=== PATIENT | male | born 1970 | race Caucasian/White ===

== ENCOUNTER 2019-06-01 13:59 | Outpatient (REF) | payer BC, SELFPAY ==
--- NOTE | 2019-06-01 13:30 | SKI_PTH ---
PATIENT: Daniel Ribeiro LOC: [facility] U#:[id number] AGE/SX: 48/M ROOM: RE06/01/[address]: Gab Hernández : 1970 BED: DIS: 06/01/2019 SPEC #: [id number] RECD: 06/04/19 12:42 STATUS: JANNETH COLON #: [id number] JESUS: 06/01/19 13:[address]: Gab Hernández DEPT: Surgical Specimen RECD BY: Carmen Meza Tissues: 1 - SKIN BIOPSY(SHAVE/PUNCH) Procedures: SKIN LEVEL 4 Comments: [id number]
== END 2019-06-01 14:19 ==
LOC: NCHCN 13:59
PROVIDERS: PCP Specialist/Technologist Athletic Trainer; Visit Provider Specialist/Technologist Athletic Trainer
DX: D22.5 Melanocytic nevi of trunk (principal)
CPT/HCPCS: 88305

== ENCOUNTER 2020-05-14 09:00 | Outpatient (REF) | payer BC, SELFPAY ==
[2020-05-14 20:46] LABS: ALT 34 U/L (16-63); AST 15 U/L (15-37); Alkaline Phosphatase 106 U/L (46-116); Anion Gap 11.1 mmol/L (3-11); BUN 15 mg/dL (7-18); Bilirubin, Total 0.4 mg/dL (0.2-1.0); CO2 25.9 mmol/L (21.0-32.0); CREATININE 0.93 mg/dL (0.70-1.30); Calcium 8.6 mg/dL (8.5-10.1); Calculated LDL 121 mg/dL (<100); Chloride 105 mmol/L (98-107); Cholesterol 176 mg/dL (<200); Glucose 100 mg/dL (74-106); HDL Cholesterol 34 mg/dL (40-60); Potassium 4.3 mmol/L (3.5-5.1); Sodium 142 mmol/L (136-145); TSH 0.92 uIU/mL (0.36-3.74); Total Protein 6.9 g/dL (6.4-8.2); Triglyceride 105 mg/dL (<150)
[2020-05-19 13:54] LABS: Testosterone, Total 253 ng/dL (240-950)
== END 2020-05-14 09:20 ==
LOC: NCHCN 09:00
PROVIDERS: PCP Specialist/Technologist Athletic Trainer; Visit Provider Nurse Practitioner Family
DX: Z00.00 Encounter for general adult medical examination without abnormal findings (principal); F41.1 Generalized anxiety disorder; R68.82 Decreased libido
CPT/HCPCS: 80053; 80061; 84402; 84403; 84443

== ENCOUNTER → 2021-10-23 00:55 | Outpatient (CLI) | payer BC, SELFPAY ==
--- NOTE | 2021-10-23 11:40 | DI.MRI_ITS ---
Exam(s) MR BRAIN WO EXAM: MR BRAIN WO CLINICAL HISTORY: NEW ONSET HEADACHE WITH VISION CHANGES,R51.9 TECHNIQUE: Multiplanar multisequence MRI of the brain was performed. COMPARISON: No exams were available for comparison FINDINGS: VENTRICLES AND EXTRA AXIAL SPACES: Normal in size and morphology for the patient's age. MIDLINE SHIFT: None. CEREBRAL PARENCHYMA: No focus of restricted diffusion to suggest acute infarct. No space-occupying le sasha identified. HEMORRHAGE: None. BRAINSTEM/CEREBELLUM: Normal. VISUALIZED PARANASAL SINUSES/MASTOIDS:Minimal mucosal thickening sphenoid sinuses and floor of the le ft maxillary sinus. [place]: Normal flow void. PITUITARY GLAND: Unremarkable. OTHER FINDINGS: None. IMPRESSION: Unremarkable MRI of the brain. Minimal sinus disease. DATA REPOSITORY:
== END ==
PROVIDERS: PCP Nurse Practitioner Family; Visit Provider Nurse Practitioner Family
DX: R51.9 Headache, unspecified (principal); H53.8 Other visual disturbances
CPT/HCPCS: 70551

== ENCOUNTER 2021-11-08 12:19 | Emergency (ER) | payer SELFPAY ==
[2021-11-08 12:25] VITALS: BP 154/83; PULSE 91; RESP 16; TEMP 36.2; O2SAT 95
--- NOTE | 2021-11-08 12:49 | ED.GENADUL_ITS ---
Discharge Plan Disposition Patient Disposition: HOME Condition: Stable Discharge Details Clinical Impression: Chronic facial pain, Headache, Sinus disease Primary Care Provider: Renu Crawley ED Provider: Randa Vanegas Home Meds and New Rx's Prescriptions: New levofloxacin 750 mg tablet 750 mg PO DAILY 7 Days Qty: 7 0RF prednisone 20 mg tablet See Rx Instructions .ROUTE .COMPLEX Qty: 18 0RF Rx Instructions: Take 3 tabs daily for 3 days, then 2 tabs daily for 3 days, then 1 tab daily for 3 days. Continued clonazepam 1 mg tablet 1 tab PO BID PRN Label Comments: TAKE ONE TABLET BY MOUTH TWICE A DAY NEEDED albuterol sulfate 90 mcg/actuation HFA aerosol inhaler 2 inh INHALATION PRN Label Comments: INHALE ONE TO TWO PUFFS BY MOUTH EVERY 4 TO 6 HOURS NEEDED Discharge Instructions Instructions: Sinusitis (ED), General Headache (ED) Additional Instructions: Drink plenty of fluids and get plenty of rest. Alternate tylenol and motrin as needed and directed for pain. Prescriptions for the antibiotic Levaquin and the steroid prednisone have been sent electronically to your pharmacy. Start taking these today and take them as directed until finished. You have been placed on care management list to arrange for a follow-up appointment with the Ear Nose and Throat doctor for reevaluation. You were tested for COVID today. Please quarantine until your COVID test result is available and if confirmed to be negative. Return immediately to the emergency department if you develop any worsening or new concerning symptoms. Referrals: Jesús Dhaliwal MD [ [facility] STAFF PHYSICIAN] - Discharge Data Discharge Date/Time-TO BE ENTERED AT DEPARTURE: 11/08/21 14:00 Discharge Physician: Randa Vanegas Medical Decision Making 50-year-old male with a history of anxiety and GERD who presents for headache, most specifically facial pain and green nasal discharge for the past few weeks. Recently referred for an outpatient MRI brain per his PCP for these symptoms which noted minimal sinus disease otherwise is unremarkable. Blood pressure mildly hypertensive, he is otherwise afebrile and appears nontoxic and comfortable. He has no tenderness to palpation of his sinuses and the remainder of his ENT exam is within normal limits. He has no focal deficits on exam. As he had a recent negative MRI brain, do not see an indication for repeat imaging at this time. As his pain is mostly overlying his sinuses and associated with green nasal discharge, would most likely suspect sinusitis at this time. His history and presentation does not appear consistent with CVA, including subarachnoid hemorrhage, or meningitis. Also consider allergies. He had no relief with a course of Augmentin. Will cover with Levaquin for possible treatment failure and add a course of steroids. Patient placed on care manage ment list to arrange for a follow-up appointment with ENT for reevaluation. Discussed with patient that this treatment regimen may not resolve his symptoms and follow-up is strongly encouraged. Usual and customary return precautions given prior to discharge. Medical Records Medical records narrative: 10/23/21 Brain MRI MR BRAIN WO CLINICAL HISTORY:? NEW ONSET HEADACHE WITH VISION CHANGES,R51.9 TECHNIQUE:? Multiplanar multisequence MRI of the brain was performed. COMPARISON:? No exams were available for comparison FINDINGS: VENTRICLES AND EXTRA AXIAL SPACES: Normal in size and morphology for the patient's age. MIDLINE SHIFT: None. CEREBRAL PARENCHYMA: No focus of restricted diffusion to suggest acute infarct. No space-occupying lesion identified. HEMORRHAGE: None. BRAINSTEM/CEREBELLUM: Normal. VISUALIZED PARANASAL SINUSES/MASTOIDS:Minimal mucosal thickening sphenoid sinuses and floor of the left maxillary sinus.? [place]: Normal flow void. PIT[place]ARY GL[place]: Unremarkable. OTHER FINDINGS: None. IMPRESSION: Unremarkable MRI of the brain. Minimal sinus disease. HPI General Mode of arrival: ambulatory . Date/Time Provider Initiated Documentation: 11/08/21 12:48 . Limitations to Documentation: no limitations . Information obtained by: patient . HPI Narrative: Patient is a 50-year-old male with a history of anxiety, GERD who presents for facial pain for the past 3 weeks. Patient states he first noticed pain while looking down while playing cards at home a few weeks ago. Patient states he followed up with his primary care doctor at [facility] who referred him for an MRI of his brain which she had on 10/23/21 which noted a normal brain but with minimal sinus disease. He states he was treated with a course of Augmentin and Flonase with no change in his symptoms. Patient states he has had clear and green nasal discharge. He denies any fever, sneezing, sore throat, cough, chest pain, shortness of breath, headache felt the top of his head, neck pain, unilateral numbness or weakness. Related Data Home Medications Medication Instructions Recorded Confirmed albuterol sulfate 90 mcg/actuation 2 inh inhalation PRN 11/08/21 aerosol inhaler clonazepam 1 mg tablet 1 tab PO BID PRN 11/08/21 11/08/21 levofloxacin 750 mg tablet 750 mg PO DAILY 7 days #7 tabs 11/08/21 prednisone 20 mg tablet See Rx Instructions .Route 11/08/21 .COMPLEX #18 tabs Previous Rx's Medication Instructions Recorded levofloxacin 750 mg tablet 750 mg PO DAILY 7 days #7 tabs 11/08/21 prednisone 20 mg tablet See Rx Instructions .Route 11/08/21 .COMPLEX #18 tabs Allergies Allergy/AdvReac Type Severity Reaction Status Date / Time Sulfa (Sulfonamide Allergy Severe Anaphylaxsi Unverified 11/08/21 12:28 Antibiotics) s ranitidine Allergy Intermediate Hives Unverified 11/08/21 12:28 lactose AdvReac Unverified 11/08/21 12:28 General Stated Complaint: Headache ASA: 3 Review of Systems All systems reviewed & are unremarkable except as noted in HPI and below Constitutional Constitutional: Reports as per HPI, Denies chills and Denies fever(s) Eyes Eyes: Denies blurry vision ENT Ears, Nose, Mouth, and Throat: Denies dizziness, Reports facial pain, Reports nasal congestion, Reports nasal discharge, Reports sinus pain, Reports sinus pressure, Denies sore throat and Denies throat swelling Cardiovascular Cardiovascular: Denies chest pain and Denies dyspnea Respiratory Respiratory: Denies cough and Denies dyspnea Gastrointestinal Gastrointestinal: Denies abdominal pain, Denies diarrhea and Denies vomiting Genitourinary Genitourinary: Denies hematuria and Denies dysuria Musculoskeletal Musculoskeletal: Denies back pain and Denies numbness Integumentary/Breasts Skin/Breast: Denies lesions and Denies rash Neurologic Neurologic: Denies dizziness, Denies localized weakness and Denies numbness Allergic/Immunologic Allergic/Immunologic: Denies throat swelling PFSH All Active Problems (Updated 11/08/21 @ 13:24 by Randa Vanegas DO) Chronic facial pain (Acute) Headache (Acute) Sinus disease (Acute) Social History Smoking/Tobacco Use Status: Former Tobacco Use Smoking risk assessment performed?: Yes Alcohol Intake: never Drug use: Never Substance use type: does not use Do you feel safe in your relationship?: Yes Exam Const General: cooperative, healthy appearing and no acute distress Orientation: alert, awake and oriented x3 HENMT Head: normal to inspection Ears: hearing grossly normal bilaterally, external ears normal and TM's normal bilaterally General nose exam: external nose normal Face and sinus: no sinus tenderness Mouth: oral mucosae normal Throat: posterior oropharynx normal Eyes General: appearance normal, both eyes and all related structures Neck Neck: normal visual inspection, no lymphadenopathy, no meningeal signs, trachea midline and supple Resp Effort & Inspection: normal respiratory effort and able to speak in complete sentences Auscultation: clear to auscultation bilaterally Cardio Rate: regular rate Rhythm: regular rhythm Skin General skin exam: no rashes or lesions noted Neuro General: patient alert, patient awake and patient oriented x3 Motor: muscle tone normal throughout Extrem General: normal to inspection and full ROM Psych Appearance: grossly normal Affect: normal affect Course Vital Signs Vital signs: Vital Signs Temperature 97.2 F L 11/08/21 12:25 Pulse 91 H 11/08/21 12:25 Respiratory Rate 16 11/08/21 12:25 Blood Pressure 154/83 H 11/08/21 12:25 Pulse Oximetry 95 11/08/21 12:25 Temperature 97.2 F L 11/08/21 12:25 Temperature Source Temporal Artery Scan 11/08/21 12:25 Pulse 91 H 11/08/21 12:25 Respiratory Rate 16 11/08/21 12:25 Respiratory Effort 11/08/21 12:25 Blood Pressure 154/83 H 11/08/21 12:25 Blood Pressure Position Sitting 11/08/21 12:25 Pulse Oximetry 95 11/08/21 12:25 Oxygen Delivery Method Room Air 11/08/21 12:25 Oxygen Flow Rate 0 11/08/21 12:25 Pain Level 6 11/08/21 12:25
--- NOTE | 2021-11-08 14:08 | NUR.NOTE ---
Referral faxed to [facility] ENT for possible sinusitis disease within the next 2 weeks. Araseli Samuel
[2021-11-10 11:56] LABS: COVID-19 RT-PCR UVMMC Result Negative (Negative)
--- NOTE | 2021-11-10 18:21 | NUR.NOTE ---
patient notified of negative covid test results.
== END 2021-11-08 14:00 | disposition home or self-care (01) ==
PROVIDERS: Emergency Provider Physician Assistant; PCP Nurse Practitioner Family
DX: R51.9 Headache, unspecified (principal); J34.89 Other specified disorders of nose and nasal sinuses
CPT/HCPCS: 99283; U0003

== ENCOUNTER 2022-09-30 18:41 | Outpatient (REF) | payer OTHER, SELFPAY ==
[2022-09-30 19:04] LABS: Anion Gap 9.7 mmol/L (3-11); BUN 15 mg/dL (7-18); CO2 26.3 mmol/L (21.0-32.0); Calcium 9.2 mg/dL (8.5-10.1); Calculated LDL 118 mg/dL (<100); Chloride 106 mmol/L (98-107); Cholesterol 192 mg/dL (<200); Estimated GFR 91.12 (mL/min/1.73m2); Glucose 105 mg/dL (74-106); HDL Cholesterol 39 mg/dL (40-60); Potassium 4.2 mmol/L (3.5-5.1); Sodium 142 mmol/L (136-145); Triglyceride 175 mg/dL (<150)
[2022-09-30 19:24] LABS: Hemoglobin A1C 5.8 % (<5.7)
== END 2022-09-30 18:42 | disposition home or self-care (01) ==
LOC: NCHCN 18:41
PROVIDERS: PCP Nurse Practitioner Family; Visit Provider Nurse Practitioner Family
DX: Z00.00 Encounter for general adult medical examination without abnormal findings (principal); Z13.1 Encounter for screening for diabetes mellitus; Z83.3 Family history of diabetes mellitus; Z13.228 Encounter for screening for other metabolic disorders
CPT/HCPCS: 80048; 80061; 83036

== ENCOUNTER → 2023-06-24 19:33 | Outpatient (CLI) | payer OTHER, SELFPAY ==
--- NOTE | 2023-06-24 19:49 | DI.RAD_ITS ---
Exam(s) XR CHEST 2V PA LATERAL EXAM: XR CHEST 2V PA LATERAL CLINICAL HISTORY: COUGH TECHNIQUE: 2D digital imaging was performed. COMPARISON: CR CHEST 2 VIEWS PA,LAT from 09/28/2013 FINDINGS: HEART: Normal size. Aorta: Not dilated. PULMONARY VASCULATURE: Normal. LUNGS: Clear. PLEURAL SPACE: No pleural effusion or pneumothorax. BONE:Unremarkable for age. Soft tissues: Unremarkable. IMPRESSION: No acute abnormality. DATA REPOSITORY: RADIATION DOSE DELIVERED:
--- NOTE | 2023-06-24 20:09 | DI.VRAD_ITS ---
PROCEDURE INFORMATION: Exam: XR Chest Exam date and time: 06/24/2023 7:42 PM Age: 52 years old Clinical indication: Cough TECHNIQUE: Imaging protocol: Radiologic exam of the chest. Views: 2 views. COMPARISON: No relevant prior studies available. FINDINGS: Lungs: Unremarkable. No consolidation. Pleural spaces: Unremarkable. No pleural effusion. No pneumothorax. Heart/Mediastinum: Unremarkable. No cardiomegaly. Bones/joints: Unremarkable. IMPRESSION: No acute findings. Dictated and Authenticated by: Harris Song MD. Ordering:HOPE Nguyen MD
== END ==
PROVIDERS: PCP Nurse Practitioner Family; Visit Provider Physician Assistant Medical
DX: R05.9 Cough, unspecified (principal)
CPT/HCPCS: 71046

== ENCOUNTER 2023-10-24 18:02 | Outpatient (REF) | payer OTHER, SELFPAY ==
[2023-10-24 19:26] LABS: ALT 47 U/L (16-63); AST 20 U/L (15-37); Albumin 4.3 g/dL (3.4-5.0); Alkaline Phosphatase 103 U/L (46-116); Anion Gap 10.3 mmol/L (3-11); BUN 14 mg/dL (7-18); Bilirubin, Total 0.3 mg/dL (0.2-1.0); CO2 24.7 mmol/L (21.0-32.0); Calculated LDL 140 mg/dL (<100); Chloride 105 mmol/L (98-107); Cholesterol 201 mg/dL (<200); Estimated GFR 90.56 (mL/min/1.73m2); Glucose 94 mg/dL (74-106); HDL Cholesterol 46 mg/dL (40-60); Potassium 4.2 mmol/L (3.5-5.1); Sodium 140 mmol/L (136-145); Total Protein 7.5 g/dL (6.4-8.2); Triglyceride 77 mg/dL (<150)
[2023-10-24 19:57] LABS: Hemoglobin A1C 5.8 % (<5.7)
[2023-10-26 08:44] LABS: Hepatitis C Ab w Rflx HCV PCR Negative (Negative)
[2023-10-26 09:56] LABS: HIV-1/2 Ag & Ab Screen Negative (Negative)
== END 2023-10-24 18:03 | disposition home or self-care (01) ==
LOC: NCHCN 18:02
PROVIDERS: PCP Nurse Practitioner Family; Visit Provider Nurse Practitioner Family
DX: Z13.6 Encounter for screening for cardiovascular disorders (principal); Z00.00 Encounter for general adult medical examination without abnormal findings
CPT/HCPCS: 80053; 80061; 86803; 87389; 83036

== ENCOUNTER 2023-11-03 11:02 | Day surgery (SDC) | payer OTHER, SELFPAY ==
--- NOTE | 2023-11-02 22:18 | PDOC.DSDIS_ITS ---
Date of service: 11/03/23 Time of Service: 13:33 Discharge Plan Disposition Patient Disposition: Home Condition: Good Discharge Details Reason For Visit: Screening colonoscopy Attending Provider: Tristen Fairbanks Primary Care Provider: Renu Crawley Home Meds and New Rx's Prescriptions: Continued magnesium oxide 400 mg magnesium capsule 400 mg PO DAILY riboflavin (vitamin B2) 100 mg tablet 100 mg PO BID sumatriptan succinate 100 mg tablet See Rx Instructions PO .COMPLEX Qty: 10 3RF Rx Instructions: take 1 tab at onset of headache; if no relief, may repeat 1 tab after at least 2 hrs; max = 2 tabs/24 hrs PO prochlorperazine maleate 5 mg tablet See Rx Instructions PO TID PRN (Reason: headaches and nausea) Qty: 30 3RF Rx Instructions: 5-10 mg orally three times a day PRN; clotrimazole-betamethasone 1-0.05 % cream 1 applic topical BID PRN Qvar RediHaler 40 mcg/actuation HFA aerosol breath activated 2 inh inhalation BID ProAir RespiClick 90 mcg/actuation aerosol powdr breath activated 2 inh inhalation Q4H PRN clonazepam 1 mg tablet 1 tab PO BID PRN Patient Comments: TAKE ONE TABLET BY MOUTH TWICE A DAY NEEDED Discontinued bisacodyl [Dulcolax (bisacodyl)] 5 mg tablet,delayed release (DR/EC) 5 mg PO ONCE Qty: 4 0RF Rx Instructions: Take per colonoscopy instructions provided by ordering providers office polyethylene glycol 3350 17 gram/dose powder 17 g PO ONCE Qty: 238 0RF Rx Instructions: Take per colonoscopy instructions provided by ordering providers office Discharge Instructions Instructions: Colorectal Polyps (GEN) Additional Instructions: Daniel, we were able to complete your colonoscopy today without any difficulty. Your prep was fine, and I could see everything quite nicely. He did have 1 polyp that was medium in size. It was located about 35 cm up from your anus. I did remove that today without any issues, and I will send it off for testing. Once the nature of that polyp is determined, that information will be used to guide the timing of your next colonoscopy. As soon as my office test was results, we will be in touch. If you have any questions in the meantime, please do not hesitate to call or ask at any point. 1. If tolerated, consume a soft, low fiber diet for 1-2 days. 2[address] Do not drive, drink alcohol, operate machinery, make critical decisions, or do activities that require coordination or balance for 24 hours. 3. Because air was put into your colon during the procedure, expelling air from your rectum (passing gas or farting) is normal. 4. You may not have a bowel movement for 1-3 days because of the colonoscopy pr ep. This is normal. 5. Go directly to the emergency room if you notice any of the following: Develop chills (warm to touch), or if you have a thermometer and your temperature is above 101 Difficulty breathing or difficultly swallowing Persistent vomiting Severe abdominal pain, other than gas cramps Severe chest pain Black, tarry stools Any bleeding ? exceeding one tablespoon 6. Call your physician if the site where your intravenous was started becomes red, swollen, painful, and warm to touch. 7. Your physician has reviewed your pre-procedure medications. Please continue to take those medications as previously ordered. You will be given specific information/education regarding any changes to your medications before leaving. Activity:: Activity as Tolerated Diet:: As Tolerated Discharge Orders Discharge Orders: Discharge Order (Routine); Ordered 11/02/23 Ordered By: Tristen Fairbanks DS: Diagnosis Discharge Diagnosis (1) Encounter for screening colonoscopy: Status: Acute Asessment and Plan: Follow-up on polypectomy results
--- NOTE | 2023-11-02 22:20 | W.COLOREPORT ---
Date of service: 11/03/23 Time of Service: 13:35 Colonoscopy Report Date of procedure: 11/03/23 Pre-op diagnosis general: Screening colonoscopy Post-op diagnosis procedure note: other (Colon polyp) Procedure: Colonoscopy with polypectomy Surgeon: Tristen Fairbanks Anesthesia Type: General:No Airway Estimated blood loss (mL): 5 Pathology: other (0.75 pedunculated polyp at 35 cm from the anus) Complications: None Disposition: same day Indications: Daniel is a 52-year-old male who needs his neck screening colonoscopy Prep: Miralax/Dulcolax Procedure Start Time: 13:08 Procedure End Time: 13:22 Retraction Time: 8 Findings: 0.75 pedunculated polyp at 35 cm from the anus Procedure Description: After the induction of monitored anesthetic care, and with the patient in left lateral decubitus position, I began by performing an external anorectal exam.? Perineum and skin were normal, as was the anal verge.? There was no evidence of external hemorrhoids.? Next, I performed a digital rectal exam.? I did not appreciate any abnormal findings.? Next, I advanced a colonoscope into the rectal vault.? I performed retroflexion.? This was normal.? Using insufflation, I then advanced the colonoscope beyond the rectal folds and into the sigmoid colon before advancing towards the cecum.? The scope was noted to be in the cecum by identification of the ileocecal valve and appendiceal orifice.? I then began withdrawing the colonoscope using repeated irrigation as necessary for full evaluation of the colonic mucosa. Around 35 cm from the anal verge I identified a 0.75 cm polyp. ?It appeared pedunculated in character. ?I was able to remove this with a energize snare polypectomy. ?I examined the site, and there was minimal bleeding. ?Once this was completed, I continued to withdraw the scope and examine the remainder of the colonic mucosa.?Once the scope was withdrawn to the level of the rectum, great care was taken to examine portions of the rectal folds.? Finally, the scope was withdrawn and the patient was brought to the same-day surgery recovery unit as the anesthetic wore off. ?The findings and instructions were shared with the patient prior to discharge. [place] Bowel Prep [place] Bowel Prep Right Colon: 2 Left Colon: 3 Transverse Colon: 3 Total Score: 8
[2023-11-03 11:31] VITALS: BP 147/93; PULSE 105; RESP 16; TEMP 36.4; O2SAT 95
[2023-11-03] MEDS: Lactated Ringers 1,000 ML 80 ML IV (11:36)
--- NOTE | 2023-11-03 12:33 | W.ANESPRE ---
General Info Date of Service Date Performed: 11/03/23 Height: 5 ft 11 in Weight: 140.5 kg Body Mass Index (BMI): 43.2 Surgical Procedure: Operation Date: 11/03/23 13:05 Proposed Procedure Side Surgeon medardo Fairbanks MD Meds Allergies and Home Medications Allergies Allergy/AdvReac Type Severity Reaction Status Date / Time Sulfa (Sulfonamide Allergy Severe Anaphylaxsi Verified 11/03/23 11:14 Antibiotics) s ranitidine Allergy Intermediate Hives Verified 11/03/23 11:14 sulfasalazine Allergy Mild shortness Verified 11/03/23 11:14 of breath griseofulvin Allergy . Verified 11/03/23 11:14 lactose AdvReac Unknown . Verified 11/03/23 11:14 omeprazole AdvReac Headache/na Verified 11/03/23 11:14 usea Home Medication Medication Instructions Recorded clonazepam 1 mg tablet 1 tab PO BID PRN 11/08/21 clotrimazole-betamethasone 1 1 applic topical BID PRN 03/16/22 %-0.05 % topical cream prochlorperazine maleate 5 mg See Rx Instructions PO TID PRN 03/23/22 tablet headaches and nausea #30 tabs magnesium oxide 400 mg PO DAILY 05/04/22 riboflavin (vitamin B2) 100 mg 100 mg PO BID 05/04/22 tablet sumatriptan succinate 100 mg tablet See Rx Instructions PO .COMPLEX 05/04/22 #10 tabs albuterol sulfate 90 mcg/actuation 2 inh inhalation Q4H PRN 09/05/23 breath activated powder inhaler (ProAir RespiClick) beclomethasone dipropionate 40 2 inh inhalation BID 09/05/23 mcg/actuation HFA breath activated aerosol (Qvar RediHaler) Current Visit Medications: Current Medications Generic Name Dose Route Start Last Admin Trade Name Freq PRN Reason Stop Dose Admin Ringer's Solution 1,000 mls @ 80 mls/hr 11/03/23 06:00 11/03/23 11:36 IV 12/02/23 23:59 80 mls/hr INFUSION NILAY Administration IV Miscellaneous Supplies 1 each 11/03/23 06:00 Iv Access IV 12/02/23 23:59 DIRECTED NILAY Ondansetron HCl 4 mg 11/02/23 22:21 Ondansetron 4 Mg/2 Ml Vial IVP 12/02/23 22:20 Q4H PRN PRN Nausea / Vomiting Sodium Chloride 0 ml 11/03/23 06:00 Normal Saline Flush 10 Ml Syr IV 12/02/23 23:59 PRN PRN Sodium Chloride 0 ml 11/03/23 06:00 Normal Saline 10 Ml Vial IJ 12/02/23 23:59 DIRECTED PRN Sterile Water 0 ml 11/03/23 06:00 Water,Injection,Sterile 10 Ml Vial IJ 12/02/23 23:59 DIRECTED PRN PFSH Active Problems Active Problems: Problem Status Onset Code Encounter for screening colonoscopy Z12.11 Migraine headache without aura G43.009 Daily headache R51.9 Facial pressure R44.8 Headache around the eyes R51.9 Medical History Medical History Asthma Decreased libido without sexual dysfunction Family history of diabetes mellitus in first degree relative Generalized anxiety disorder Genital herpes GERD (gastroesophageal reflux disease) Lateral epicondylitis Low back pain Palpitations Panic disorder Reduced libido Right shoulder pain Seasonal allergic rhinitis Tinea cruris Tongue lesion Wart of hand Tobacco Smoking/Tobacco Use Status: Former Tobacco Use Alcohol Alcohol Intake: current Alcohol intake frequency: holidays/special occasions only Substance Use Substance use: Never Substance use type: does not use Vital Signs and Lab Results Vital Signs Most Recent Vital Signs in EMR: Most Recent Vital Signs Temp Pulse Resp BP Pulse Ox 36.4 C L 105 H 16 147/93 H 95 11/03/23 11:31 11/03/23 11:31 11/03/23 11:31 11/03/23 11:31 11/03/23 11:31 Lab Results Blood Type / Crossmatch: No Data to Display Complete Blood Count: No Data to Display Complete Metabolic Panel: Sodium 140 mmol/L (136-145) 10/24/23 16:20 Potassium 4.2 mmol/L (3.5-5.1) 10/24/23 16:20 Chloride 105 mmol/L (98-107) 10/24/23 16:20 Carbon Dioxide 24.7 mmol/L (21.0-32.0) 10/24/23 16:20 BUN 14 mg/dL (7-18) 10/24/23 16:20 Creatinine 1.0 mg/dL (0.70-1.30) 10/24/23 16:20 Est GFR (CKD-EPI 2020) 90.56 (mL/min/1.73m2) 10/24/23 16:20 Calcium 9.0 mg/dL (8.5-10.1) 10/24/23 16:20 Albumin 4.3 g/dL (3.4-5.0) 10/24/23 16:20 Glucose 94 mg/dL (74-106) 10/24/23 16:20 Hemoglobin A1c 5.8 % (<5.7) H 10/24/23 16:20 Liver Function Panel: Alanine Aminotransferase (ALT/SGPT) 47 U/L (16-63) 10/24/23 16:20 Aspartate Amino Transf (AST/SGOT) 20 U/L (15-37) 10/24/23 16:20 Coagulation Panel: No Data to Display Cardiac Panel: No Data to Display Arterial Blood Gas: No Data to Display Venous Blood Gas: No Data to Display Pancreas Panel: No Data to Display Thyroid Panel: No Data to Display Infectious Disease: HIV (1&2) Ag and Ab, 4th Generation Negative (Negative) 10/24/23 16:20 Hepatitis C Antibody Negative (Negative) 10/24/23 16:20 Blood Cultures: No Data to Display Toxicology Panel: No Data to Display Anesthesia Assessment and Plan Anesthesia History Personal History: PONV Family History: No Family History of Anesthesia Complications Exercise Tolerance Exercise Tolerance: Metabolic Equivalents>4 Pertinent Negatives Pertinent Negatives: No Symptoms of GERD, No Major Cardiovascular Symptoms or Complaints and No Major Pulmonary Symptoms or Complaints Cardiac & Pulmonary Exam Cardiac Exam: Normal S1/S2 Heart Sounds Pulmonary Exam: Clear Bilateral Breath Sounds Implantable Cardiac Device Does patient have a Pacemaker or an ICD?: No Airway Exam Known Difficult Airway: No Mallampati Class: 2 Mouth Opening: Normal (> 3cm) Thyromental Distance: Greater than 3 cm Neck Range of Motion: Full ROM Neck Circumference: Normal Teeth Condition: Removable Dentures/Plates Upper and Removable Dentures/Plates Lower ASA Classification ASA Score: ASA 3 Emergency Case?: No NPO Status NPO Status: NPO Clears >2 hours, Solids >8 hours Anesthesia Plan Resuscitation Status: Full Code Anesthesia Technique: General Anesthesia Airway Planned: Natural Airway Monitors Used: Standard Monitors
[2023-11-03 12:35] VITALS: BMI 43.2
--- NOTE | 2023-11-03 13:20 | BOWEL_PTH ---
PATIENT: Daniel Ribeiro LOC: [facility] U#:[id number] AGE/SX: 52/M ROOM: RE11/03/[address]: Tristen Fairbanks MD : 1970 BED: DIS: 11/03/2023 SPEC #: [id number] RECD: 11/03/23 18:22 STATUS: JANNETH RE #: [id number] JESUS: 11/03/23 13:[address]: Tristen Fairbanks DEPT: Surgical Specimen RECD BY: Carmen Meza ENTERED: 11/03/23 18:23 SP TYPE: Bowel OTHR DR: Renu Crawley Tissues: 1 - BIOPSY BOWEL Procedures: GROSS AND MICRO LEVEL 4 Comments: [id number]
[2023-11-03 13:28] VITALS: BP 128/78; PULSE 97; RESP 16; TEMP 36.5; O2SAT 92
--- NOTE | 2023-11-03 13:50 | W.ANESPOSTOP ---
Postoperative Evaluation Date, Time and Location Date Performed: 11/03/23 Time Performed: 13:42 Patient Location: Day Surgery Unit Vital Signs Most Recent Imported Vital Signs: Most Recent Vital Signs Temp Pulse Resp BP Pulse Ox 36.5 C 97 H 16 128/78 92 11/03/23 13:28 11/03/23 13:28 11/03/23 13:28 11/03/23 13:28 11/03/23 13:28 Pain Score Most Recent Pain Score: Most Recent Pain Score Pain Level 0 11/03/23 13:28 Assessment Mental Status: Awake (Alert & Oriented to Patient Baseline) Airway and Respiratory Function: Patent airway with normal (patient baseline) respiratory exam Cardiovascular Function: Hemodynamically Stable Hydration Status: Adequately Hydrated Nausea & Vomiting: No Nausea or Vomiting Pain: Pt. Denies Any Pain Peripheral Nerve Block: Patient did not receive a nerve block
[2023-11-03 13:57] VITALS: BP 120/85; PULSE 89; RESP 16; TEMP 36.4; O2SAT 94
== END 2023-11-03 14:20 | disposition home or self-care (01) ==
PROVIDERS: PCP Nurse Practitioner Family; Visit Provider Surgery
PROC: 0DJD8ZZ Inspection of Lower Intestinal Tract, Via Natural or Artificial Opening Endoscopic (ICD-10-PCS; CPT 45378; principal; 2023-11-03 13:00)
DX: Z12.11 Encounter for screening for malignant neoplasm of colon (principal); D12.5 Benign neoplasm of sigmoid colon
CPT/HCPCS: 45385; 88305; J2704

== ENCOUNTER 2025-01-17 18:21 | Outpatient (REF) | payer BC, SELFPAY ==
[2025-01-18 09:55] LABS: Hemoglobin A1C 5.6 % (<5.7)
[2025-01-18 09:57] LABS: ALT 51 U/L (16-63); AST 17 U/L (15-37); Albumin 4.3 g/dL (3.4-5.0); Alkaline Phosphatase 107 U/L (46-116); Anion Gap 10.6 mmol/L (3-11); BUN 15 mg/dL (7-18); Bilirubin, Total 0.5 mg/dL (0.2-1.0); CO2 24.4 mmol/L (21.0-32.0); Calcium 9.4 mg/dL (8.5-10.1); Chloride 105 mmol/L (98-107); Estimated GFR 89.44 (mL/min/1.73m2); Glucose 98 mg/dL (74-106); Potassium 4.1 mmol/L (3.5-5.1); Sodium 140 mmol/L (136-145); TSH (W/Ref FT4) 1.02 uIU/mL (0.36-3.74); Total Protein 7.3 g/dL (6.4-8.2)
== END 2025-01-17 18:22 | disposition home or self-care (01) ==
LOC: NCHCN 18:21
PROVIDERS: Visit Provider Nurse Practitioner Family
DX: Z00.00 Encounter for general adult medical examination without abnormal findings (principal)
CPT/HCPCS: 80053; 83036; 84443

== ENCOUNTER 2025-02-14 00:14 | Outpatient (CLI) | payer BC, SELFPAY ==
--- NOTE | 2025-02-14 | ETT_ITS ---
APPROVED REPORT Exam: Exercise Treadmill Patient Location: Out-Patient Room/Bed: Stress Nurse: ASUNCION Collins Ordering Provider:MATT PETIT, Contact Number: [phone] BMI: 48.80 Baseline Rhythm: Sinus Rhythm. Indications: Chest Pain, Left Sided. Medical History Medical History: Generalized Anxiety Disorder; GERD; Genital Herpes; Palpitations; Panic Disorder; Asthma; Migraines; Daily Headaches; Mixed Anxiety/Depressive Disorder. Cardiac Medications: Albuterol Sulfate; Bupropion; Clonazepam; Fluticasone Propionate; Magnesium Oxide; Prochlorperazine; Qvar-Redihaler; Sumatriptan. Allergies: Sulfas; Ranitidine; Sulfasalazine; Griseofluvin; Lactose; Omeprazole. Cardiac Risk Factors: Asthma; Former Smoker; Obesity. Previous Cardiac Procedures: None. Pretest Chest Pain Characteristics: None. Exercise History: Indeterminate. Physical Disabilities: None. Lung Sounds: Clear bilaterally throughout, anterior and posterior. Heart Sounds: S1 and S2 auscultated. Stress Test Details Test: Exercise stress testing was performed using a August protocol. Rest Stress HR Resting HR Supine: 91 bpm Max Heart Rate (APMHR): 166 bpm Resting HR Standin bpm Target HR (85% APMHR): 141 bpm Max HR Achieved: 152 bpm % of APMHR: 92 Recovery HR: 102 bpm HR response to stress: Normal HR response to stress. BP Resting BP Supine: 158/90 mmHg Resting BP Standin/90 mmHg Max BP: 190/80 mmHg Recovery BP: 110/74 mmHg BP response to stress: Normal blood pressure response to stress. ECG Resting ECG: Sinus Rhythm. Ectopy: None. Stress ECG: Sinus Tachycardia. ST Change: No significant ST segment changes noted. Arrhythmia: Rare PVC's. Recovery ECG: Sinus Tachycardia. Recovery ST Change: No significant ST segment changes noted. Recovery Arrhythmia: Rare PVC. Clinical Reason for Termination: Target HR Achieved, Dyspnea, Pt. Request to Stop. Stress Symptoms: Dyspnea. Exercise duration: 08 min02 sec Highest Stage Reached: Stage 3: 3.4 mph at 14% grade. Exercise capacity: 10.16 METs Angina Score: None Sam Treadmill Score: 7.5 Rate Pressure Product: [id number] Stress ECG Conclusion 1. Resting electrocardiogram was normal 2. Patient exercised on the August protocol and completed workload of 10 METS 3. Normal heart rate and blood pressure response to exercise. The patient achieved 92% of maximal predicted heart rate for age 4. There was no electrocardiographic evidence of myocardial ischemia 5. There were no significant dysrhythmias Sam Treadmill Score is 7.5 which is Low risk. Stress Test Summary STAGE Time (mins) Speed (mph) Grade (%) HR BP SpO2 SYMPTOMS METS Supine 91 158/90 92 Standing 101 140/90 94 1 3 1.7 10 124 162/88 93 4.5 2 6 2.5 12 138 190/80 92 7 3 9 3.4 14 152 92 Pt. c/o mild shortness of breath. 10 1 min recovery 129 178/82 93 Pt. c/o mild shortness of breath. 3 min recovery 104 162/88 95 Pt. c/o minimal shortness of breath. 6 min recovery 102 110/74 95 Pt. denies shortness of breath. Pt. performed an ETT stress test. Pt. experienced mild shortness of breath with exertion, which resolved prior to pt. leaving the Stress Lab. ETT was stopped due to pt. achieving a heart rate higher than the target heart rate, pt. experiencing mild shortness of breath, and pt. requesting to stop the stress test. Pt. was conversing pleasantly with nursing staff upon leaving the Stress Lab and left ambulatory in no apparent distress.
== END 2025-02-14 00:34 ==
PROVIDERS: Visit Provider Nurse Practitioner Family
DX: R07.9 Chest pain, unspecified (principal)
CPT/HCPCS: 93017

== ENCOUNTER 2025-03-12 10:58 | Outpatient (CLI) | payer BC, SELFPAY ==
--- NOTE | 2025-03-12 08:00 | DI.RAD_ITS ---
Exam(s) XR KNEE RT 4V AP,LAT,NATASHA,PAT EXAM: XR KNEE RT 4V AP,LAT,NATASHA,PAT CLINICAL HISTORY: RIGHT KNEE PAIN. TECHNIQUE: 2D digital imaging was performed of the right knee. Four views obtained. Merchant, AP, lateral and PA tunnel views were obtained. COMPARISON: There are no priors for comparison. FINDINGS: BONES: No acute fracture is present. No bony destructive lesion is seen. JOINTS: The knee is normally aligned. There is a small joint effusion. There is a tiny well corticated osseous density superior to the lateral tibial spine. It appears chronic but may represent a loose body. SOFT TISSUE: Normal. IMPRESSION: Small joint effusion. DATA REPOSITORY: RADIATION DOSE DELIVERED:
== END 2025-03-12 10:59 | disposition home or self-care (01) ==
LOC: DIORS 10:58
PROVIDERS: Visit Provider Physician Assistant
DX: M25.561 Pain in right knee (principal); M25.461 Effusion, right knee
CPT/HCPCS: 73564